=== PATIENT | male | born 1975 | race Caucasian/White ===

== ENCOUNTER 2017-10-23 18:36 | Inpatient (IN) | payer OTHER ==
[~2017-10-23] VITALS: Ht 177.8 cm; Wt 89.0 kg
[2017-10-23] MEDS ORDERED: SODIUM CHLORIDE FLUSH 10ML SYR IVF ONE (19:00)
[2017-10-23] MEDS ORDERED: ASPIRIN 325 MG TABLET PO STA (19:07)
[2017-10-23 19:15] LABS: BASOPHILS # (AUTO) 0.05 x10^3/uL (0-0.1); BASOPHILS % (AUTO) 1 % (0-1); EOSINOPHILS # (AUTO) 0.21 x10^3/uL (0-0.4); EOSINOPHILS % (AUTO) 2 % (1-7); LYMPHOCYTES # (AUTO) 3.95 x10^3/uL (1-3.4); LYMPHOCYTES % (AUTO) 45 % (22-44); MD NO; MEAN CORPUSCULAR HEMOGLOBIN 29.7 pg (27.5-34.5); MEAN CORPUSCULAR HGB CONC 33.8 g/dL (33.2-36.2); MEAN CORPUSCULAR VOLUME 87.8 fL (81-97); MEAN PLATELET VOLUME 7.3 fL (7.4-10.4); MONOCYTES # (AUTO) 0.87 x10^3/uL (0.2-0.8); MONOCYTES % (AUTO) 10 % (2-9); NEUTROPHILS # (AUTO) 3.72 x10^3/uL (1.8-6.8); NEUTROPHILS % (AUTO) 42 % (42-75); PLATELET COUNT 381 x10^3/uL (130-400); RED BLOOD COUNT 5.11 x10^6/uL (4.38-5.82); RED CELL DISTRIBUTION WIDTH 13.1 % (9.4-14.8)
[2017-10-23 19:19] LABS: INTERNATIONAL NORMALIZED RATIO 0.95 (0.93-1.1); PROTHROMBIN TIME 9.8 Seconds (9.6-11.5)
[2017-10-23 19:23] LABS: ALBUMIN 3.9 g/dL (3.4-5.0); ANION GAP 10 mmol/L (5-15); CALCIUM 8.6 mg/dL (8.5-10.1); CHLORIDE 108 mmol/L (98-107); CREATININE 1.08 mg/dL (0.7-1.3)
[2017-10-23 19:27] LABS: TROPONIN I < 0.015 ng/mL (0.000-0.045)
[2017-10-23] MEDS ORDERED: ASPIRIN 325 MG TABLET ONE (20:36)
[2017-10-23] MEDS ORDERED: ACETAMINOPHEN 650 MG/20.3 ML UDC PO PRN (22:00)
[2017-10-23] MEDS ORDERED: ZOLPIDEM 5MG TABLET PO PRN (22:00)
[2017-10-23] MEDS ORDERED: OMNIPAQUE 350 MG/ML, 100ML BOTTLE ONE (22:05)
[2017-10-23 22:51] VITALS: BP 119/81
[2017-10-23] MEDS: SODIUM CHLORIDE 0.9% 1,000 ML IV SCH (22:53)
[2017-10-24 00:47] VITALS: BP 121/69
[2017-10-24 02:48] VITALS: BP 130/71
[2017-10-24 04:40] VITALS: BP 112/74
[2017-10-24 05:59] LABS: CHOL/HDL RATIO 5.9; LDL/HDL RATIO 3.9 (0.5-3.0)
[2017-10-24 06:20] VITALS: BP 117/77
[2017-10-24] MEDS: ASPIRIN 81 MG TABLET CHEW PO/NG SCH (09:11)
[2017-10-24] MEDS ORDERED: LORazepam 2 MG/ML, 1ML IVPush ONE (10:30)
[2017-10-24] MEDS: SODIUM CHLORIDE 0.9% 1,000 ML IV SCH (12:56)
[2017-10-24 13:30] VITALS: BP 126/76
[2017-10-24] MEDS: NICOTINE 7 MG/24 HR PATCH.TD24 TD SCH (17:20)
[2017-10-24 19:39] VITALS: BP 126/78
[2017-10-24] MEDS: SIMVASTATIN 20 MG TABLET PO SCH (21:27)
[2017-10-25] VITALS (8 sets, daily range): BP systolic 127–141; BP diastolic 82–92
[2017-10-25] MEDS: ASPIRIN 81 MG TABLET CHEW PO/NG SCH (08:14)
[2017-10-25] MEDS: NICOTINE 7 MG/24 HR PATCH.TD24 TD SCH (18:06)
[2017-10-25] MEDS: SIMVASTATIN 20 MG TABLET PO SCH (20:14)
[2017-10-26 05:35] VITALS: BP 138/86
[2017-10-26 07:23] VITALS: BP 124/86
[2017-10-26] MEDS: ASPIRIN 81 MG TABLET CHEW PO/NG SCH (08:20)
[2017-10-26] MEDS ORDERED: LIDOCAINE-MPF 2% ,5ML ONE (08:59)
[2017-10-26] MEDS ORDERED: SIMV20TA3 PO (09:50)
[2017-10-26] MEDS ORDERED: ASPI-515 PO/NG (09:50)
== END 2017-10-26 13:20 | disposition home or self-care (01) | DRG 40 ==
LOC: SUATTDRO 21:05 → ED 21:23 → EDIP 22:16 → 4WST 22:24
PROVIDERS: ADMIT Hospitalist; ATTEND Hospitalist
PROC: 0JH632Z Insertion of Monitoring Device into Chest Subcutaneous Tissue and Fascia, Percutaneous Approach (ICD-10-PCS; principal; 2017-10-23)
DX: I63.9 Cerebral infarction, unspecified (principal); G93.41 Metabolic encephalopathy; F12.90 Cannabis use, unspecified, uncomplicated; I34.0 Nonrheumatic mitral (valve) insufficiency; R00.1 Bradycardia, unspecified; F17.210 Nicotine dependence, cigarettes, uncomplicated; R47.81 Slurred speech; R73.9 Hyperglycemia, unspecified; Z79.82 Long term (current) use of aspirin; Z82.3 Family history of stroke; Z83.3 Family history of diabetes mellitus
CPT/HCPCS: 33282; 36415; 70450; 70496; 70498; 70551; 71045; 72141; 80048; 80061; 81241; 82040; 84443; 84484; 85025; 85303; 85306; 85598; 85610; 85613; 85670; 85730; 85732; 86146; 86147; 93005; 93306; 99285; C1764; J3490; Q9967; 92523-GN; J2060; J7030